=== PATIENT | female | born 1990 | race Hispanic/Latino ===

== ENCOUNTER 2018-04-25 20:38 | Emergency (ER) | payer BC, MEDICAID ==
[2018-04-25 21:01] VITALS: BP 149/79
[2018-04-25] MEDS ORDERED: BOOSTRIX IM ONE (23:46)
[2018-04-25] MEDS ORDERED: NORCO 7.5/325 PO ONE (23:46)
[2018-04-25] MEDS ORDERED: RABAVERT RABIES VACCINE(PCEC) IM ONE (23:46)
[2018-04-25] MEDS ORDERED: XYLOCAINE 1% MPF 5 mL INFILTRATI ONE (23:47)
--- NOTE | 2018-04-25 23:53 | Emergency Department Report ---
ED Animal Bite HPI - General Chief Complaint: Animal Bite Stated Complaint: DOG BITE RT ARM Time Seen by Provider: 04/25/18 23:28 Source: patient Mode of arrival: Ambulatory Limitations: No Limitations - History of Present Illness Initial Comments: This is a 27-year-old female brought by mother nontoxic, well nourished in appearance, no acute signs of distress presents to the ED with c/o of dog bite to right forearm that occurred this evening. Patient stated the dog is unknown to her. Patient denies any head trauma or any other trauma. PAtient denies any information on vaccines. Patient states that she is not up-to-date with tetanus. Patient denies any fever, chills, nausea, vomiting, headache, stiff neck. Patient states allergies to Bactrim with no positive Past medical history. Patient denies notifying animal control. MD Complaint: animal bite -: This evening Right: Arm Animal: dog Animal Control Notified: No Description: unknown animal Mechanism: bite Severity scale (0 -10): 8 Context: unprovoked Associated Symptoms: other (1 cm superficial laceration). denies: erythema, discharge from wound, bleeding, fever, chills, rash, loss of consciousness, cough, headache, diaphoresis, shortness of breath - Related Data Home Medications Medication Instructions Recorded Confirmed Last Taken Pnv with Ca,No.72/Iron/FA 1 tab PO DAILY 12/08/13 12/09/13 12/08/13 09:00 [ Plus Tablet] 1 Calcium Carbonate [Tums] 2 tab PO PRN PRN 12/09/13 12/09/13 12/09/13 10:00 2 Previous Rx's Medication Instructions Recorded Last Taken Type Ferrous Sulfate [Feosol 325 MG tab] 325 mg PO BID #120 tablet 12/11/13 Unknown Rx HYDROcodone/APAP 10-325 [Squires 1 each PO Q6HR PRN #30 tablet 12/11/13 Unknown Rx 10/325] Ibuprofen [Motrin 600 MG tab] 600 mg PO Q6H PRN #30 tablet 12/11/13 Unknown Rx Acetaminophen/Codeine [Tylenol 1 tab PO Q6H PRN #12 tab 04/25/18 Unknown Rx /Codeine # 3 tab] Amoxicillin/K Clav Tab [Augmentin 1 tab PO Q12HR #20 tab 04/25/18 Unknown Rx 875 mg] Allergies Allergy/AdvReac Type Severity Reaction Status Date / Time trimethoprim [From Bactrim] Allergy Intermediate Swelling Verified 12/09/13 12: 16 sulfamethoxazole Allergy Swelling Verified 12/09/13 12:16 [From Bactrim] ED Review of Systems ROS: Stated complaint: DOG BITE RT ARM Other details as noted in HPI Constitutional: denies: chills, fever Eyes: denies: eye pain, eye discharge, vision change ENT: denies: ear pain, throat pain Respiratory: denies: cough, shortness of breath, wheezing Cardiovascular: denies: chest pain, palpitations Endocrine: no symptoms reported Gastrointestinal: denies: abdominal pain, nausea, diarrhea Genitourinary: denies: urgency, dysuria, discharge Musculoskeletal: denies: back pain, joint swelling, arthralgia Skin: denies: rash, lesions Neurological: denies: headache, weakness, paresthesias Psychiatric: denies: anxiety, depression Hematological/Lymphatic: denies: easy bleeding, easy bruising ED Past Medical Hx - Past Medical History Hx Hypertension: No Hx Congestive Heart Failure: No Hx Diabetes: No Hx Deep Vein Thrombosis: No Hx Renal Disease: No Hx Sickle Cell Disease: No Hx Seizures: No Hx Asthma: No Hx COPD: No Hx HIV: No Additional medical history: ache - Surgical History Past Surgical History?: No - Social History Smoking Status: Current Every Day Smoker Substance Use Type: None - Medications Home Medications: Home Medications Medication Instructions Recorded Confirmed Last Taken Type Pnv with Ca,No.72/Iron/FA 1 tab PO DAILY 12/08/13 12/09/13 12/08/13 09:00 History [ Plus Tablet] 1 Calcium Carbonate [Tums] 2 tab PO PRN PRN 12/09/13 12/09/13 12/09/13 10:00 History 2 Ferrous Sulfate [Feosol 325 MG tab] 325 mg PO BID #120 tablet 12/11/13 Unknown Rx HYDROcodone/APAP 10-325 [Squires 1 each PO Q6HR PRN #30 tablet 12/11/13 Unknown Rx 10/325] Ibuprofen [Motrin 600 MG tab] 600 mg PO Q6H PRN #30 tablet 12/11/13 Unknown Rx Acetaminophen/Codeine [Tylenol 1 tab PO Q6H PRN #12 tab 04/25/18 Unknown Rx /Codeine # 3 tab] Amoxicillin/K Clav Tab [Augmentin 1 tab PO Q12HR #20 tab 04/25/18 Unknown Rx 875 mg] ED Physical Exam - General Limitations: No Limitations General appearance: alert, in no apparent distress - Head Head exam: Present: atraumatic, normocephalic - Eye Eye exam: Present: normal appearance - ENT ENT exam: Present: mucous membranes moist - Neck Neck exam: Present: normal inspection - Respiratory Respiratory exam: Present: normal lung sounds bilaterally. Absent: respiratory distress - Cardiovascular Cardiovascular Exam: Present: regular rate, normal rhythm. Absent: systolic murmur, diastolic murmur, rubs, gallop - GI/Abdominal GI/Abdominal exam: Present: soft, normal bowel sounds - Extremities Exam Extremities exam: Present: normal inspection, full ROM, tenderness, normal capillary refill. Absent: joint swelling - Expanded Upper Extremity Exam Right General: Present: normal inspection Shoulder Exam: Present: normal inspection, full ROM. Absent: tenderness Upper Arm exam: Present: normal inspection, full ROM. Absent: tenderness Elbow exam: Present: normal inspection, full ROM. Absent: tenderness Forearm Wrist exam: Present: normal inspection, full ROM, tenderness, abrasion, laceration (1 cm superficial laceration). Absent: swelling, ecchymosis, deformity, dislocation, erythema, tenderness over anatomical snuff box, pain with axial thumb loading Hand Wrist exam: Present: normal inspection, full ROM. Absent: tenderness Neuro motor exam: Present: wrist extension intact, thumb opposition intact, thumb IP flexion intact, thumb adduction intact, fingers 2-5 abduction intact Neurosensory exam: Present: 2-point discrimination, radial nerve intact, ulnar nerve intact, median nerve intact Vascular: Present: vascular compromise, normal capillary refill - Back Exam Back exam: Present: normal inspection, full ROM - Neurological Exam Neurological exam: Present: alert, oriented X3 - Psychiatric Psychiatric exam: Present: normal affect, normal mood - Skin Skin exam: Present: warm, dry, intact, normal color. Absent: rash ED Course Vital Signs 04/25/18 04/25/18 21:00 21:15 Temperature 98.4 F 98.4 F Pulse Rate 69 59 L Respiratory 18 18 Rate Blood Pressure 149/79 149/79 O2 Sat by Pulse 100 100 Oximetry - Reevaluation(s) Reevaluation #1: 04/25/18 23:59 Patient is speaking in full sentences with no signs of distress noted. - Laceration /Wound Repair Right Arm Wound Location: upper extremity Wound Length (cm): 1 Wound's Depth, Shape: superficial Wound Explored: clean Irrigated w/ Saline (ccs): 40 Betadine Prep?: Yes Anesthesia: 1% Lidocaine Volume Anesthetic (ccs): 4 Wound Repaired With: sutures Suture Size/Type: 4:0, nylon Number of Sutures: 1 Layer Closure?: No Sterile Dressing Applied?: Yes Progress: Under sterile field, I used Betadine to clean the area. I then used 40 mL of normal saline to flush the area. I then used 1% lidocaine plain and injected 4 mL to the wound. I then used a 4-0 Ethilon to suture to approximate the laceration very loosely with 1 stitch placed. I then applied a sterile 4 x 4 with tape. Minimal bleeding noted but is under control. Patient tolerated procedure well with no signs of distress. Critical care attestation.: If time is entered above; I have spent that time in minutes in the direct care of this critically ill patient, excluding procedure time. ED Disposition Clinical Impression: Laceration Dog bite Qualifiers: Encounter type: initial encounter Qualified Code(s): W54.0XXA - Bitten by dog, initial encounter Disposition: DC- TO HOME OR SELFCARE Is pt being admited?: No Does the pt Need Aspirin: No Condition: Stable Instructions: Rabies Vaccine (Injection), Animal Bite (ED), Suture Care (ED), Laceration (ED) Additional Instructions: Follow-up with a primary care doctor in 3-5 days or if symptoms worsen and continue return to emergency room as soon as possible. Return in 10 days for suture removal Finish rabies vaccines series on days 04/29/2018, 05/03/2018, and 05/10/2018. Do not operate any machinery while taking Tylenol with codeine as this may cause drowsiness. Prescriptions: Acetaminophen/Codeine [Tylenol /Codeine # 3 tab] 1 tab PO Q6H PRN #12 tab PRN Reason: Pain , Severe (7-10) Amoxicillin/K Clav Tab [Augmentin 875 mg] 1 tab PO Q12HR #20 tab Referrals: PRIMARY CAREMD [Primary Care Provider] - 3-5 Days MICHEL COOPER MD [Staff Physician] - 3-5 Days [facility] [Outside] - 3-5 Days [facility] [Outside] - 3-5 Days Forms: Work/School Release Form(ED) ED Medical Decision Making - Medical Decision Making This is a 27-year-old male that presents with dog bite. Patient is stable was examined by me. I approximated the laceration with loose stitch. Patient was instructed to return in 10 days for suture removal. Patient received immunoglobulin and rabies vaccine. Patient was instructed to receive the full rabies immunizations on days number 3, 7, and 14. Patient is discharged with Augmentin and Tylenol with codeine and was instructed not to operate any machinery when taking Tylenol with Codeine as this may cause drowsiness. The bite wound has been cleaned with soap and water and a sterile dressing has been applied. Patient was educated on proper wound care. Animal control has been notified as per RN. Patient was instructed to Follow-up with a primary care doctor in 3-5 days or if symptoms worsen and continue return to emergency room as soon as possible. At time of discharge, the patient does not seem toxic or ill in appearance. No acute signs of distress noted. Patient agrees to discharge treatment plan of care. No further questions noted by the patient.
== END 2018-04-26 00:31 | disposition home or self-care (01) ==
LOC: ED 20:38
DX: S51.811A Laceration without foreign body of right forearm, initial encounter (principal); F17.200 Nicotine dependence, unspecified, uncomplicated; Z88.1 Allergy status to other antibiotic agents; Z88.2 Allergy status to sulfonamides; W54.0XXA Bitten by dog, initial encounter; Y93.89 Activity, other specified; Y92.89 Other specified places as the place of occurrence of the external cause; Y99.8 Other external cause status
CPT/HCPCS: 90375; 90471; 90472; 90675; 90715; 96372; 99282

== ENCOUNTER 2018-11-05 11:22 | Outpatient (CLI) | payer MEDICAID ==
[2018-11-05] MEDS ORDERED: LACTATED RINGERS 500 ML IV ONE (11:49)
[2018-11-05 13:09] LABS: Bacteria,Urine 1+ /HPF (Negative); Bilirubin,Urine NEG (Negative); Blood,Urine SM (Negative); Color,Urine Yellow (Yellow); Protein,Urine <15 mg/dL mg/dL (Negative); Urobilinogen,Urine < 2.0 mg/dL (<2.0)
[2018-11-05] MEDS ORDERED: XYLOCAINE 1% MPF 5 mL INFILTRATI ONE (13:28)
[2018-11-05] MEDS ORDERED: ROCEPHIN IM ONE (13:28)
--- NOTE | 2018-11-05 14:57 | Ultrasound Report ---
ULTRASOUND BIOPHYSICAL PROFILE: History: Decreased movement Technique: Transabdominal ultrasound with Doppler interrogation. 2 - breathing movements 2 - movements 2 - posture and tone 2 - Qualitative amniotic fluid volume 8 - TOTAL SCORE OF POSSIBLE 8 Heart Rate (bpm) 134
--- NOTE | 2018-11-05 14:58 | Ultrasound Report ---
ULTRASOUND OB LIMITED History: labor Technique: Transabdominal ultrasound with Doppler interrogation. Gestation: Single Position: Transverse, head to maternal left Amniotic Fluid: Normal BRITTANY = 19.7 cm Heart Rate: 129 BPM
== END 2018-11-05 15:12 | disposition home or self-care (01) ==
LOC: TRG 11:22
PROVIDERS: ATTEND Obstetrics & Gynecology
DX: O47.03 False labor before 37 completed weeks of gestation, third trimester (principal); Z3A.30 30 weeks gestation of pregnancy
CPT/HCPCS: 76815; 76819; 81001; J0696

== ENCOUNTER 2018-11-12 16:48 | Outpatient (CLI) | payer MEDICAID ==
[2018-11-12] MEDS ORDERED: LACTATED RINGERS 500 ML IV ONE (17:45)
[2018-11-12] MEDS ORDERED: CELESTONE SOLUSPAN IM SCH (17:45)
== END 2018-11-12 18:23 | disposition home or self-care (01) ==
LOC: TRG 16:48 → LD 17:28 → TRG 18:23
PROVIDERS: ATTEND Obstetrics & Gynecology
DX: O47.03 False labor before 37 completed weeks of gestation, third trimester (principal); O99.333 Smoking (tobacco) complicating pregnancy, third trimester; F17.200 Nicotine dependence, unspecified, uncomplicated; Z3A.31 31 weeks gestation of pregnancy
CPT/HCPCS: 96372; J0702

== ENCOUNTER 2018-11-13 16:11 | Outpatient (CLI) | payer MEDICAID ==
[2018-11-13] MEDS ORDERED: CELESTONE SOLUSPAN IM ONE (16:40)
[2018-11-13 16:43] VITALS: BP 116/64
== END 2018-11-13 17:33 | disposition home or self-care (01) ==
LOC: TRG 16:11
PROVIDERS: ATTEND Obstetrics & Gynecology
DX: O47.03 False labor before 37 completed weeks of gestation, third trimester (principal); O99.333 Smoking (tobacco) complicating pregnancy, third trimester; F17.200 Nicotine dependence, unspecified, uncomplicated; Z3A.31 31 weeks gestation of pregnancy
CPT/HCPCS: 96372; J0702

== ENCOUNTER 2019-01-09 09:29 | Inpatient (IN) | payer MEDICAID ==
[~2019-01-09 09:29] MED LIST: ANCEF/STERILE WATER 2 GM/20 ML 2 GM/20 ML SYRINGE IV NR; BICITRA PO NR; PEPCID IV NR; PITOCin/NS 20 UNIT/1000ML DRIP 20 UNITS/1,000 ML BAG IV SCH; REGLAN IV NR
--- NOTE | 2019-01-09 10:10 | History and Physical Report ---
History of Present Illness Date of examination: 01/09/19 Date of admission: 01/09/19 09:29 Chief complaint: scheduled section History of present illness: Pt is a 28 year old female NAHUM 01/12/19 at 39w4d who presents for scheduled section secondary to prior x 1. She reports irregular contractions and denies vaginal bleeding or leakage of fluid. The patient has had care with [facility] since 8 weeks complicated by previous 1 gentle herpes without lesion or prodrome, GERD, bilateral pyelectasis followed by MFM, contractions with positive fibronectin on 11/05/2018. She is GBS negative The patient also has two vulvar cyst that she would like to be removed while she is under anesthesia for her section because they cause her daily discomfort. 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, chlamydia (remote from this ), herpes Family/Genetic History: hypertension, cancer Social history: no significant social history - Obstetrical History Expected Date of Delivery: 01/12/19 Actual Gestation: 39 Week(s) 4 Day(s) : 3 Para: 2 Hx # Term Pregnancies: 2 Number of Pregnancies: 0 Spontaneous Abortions: 0 Induced : 0 Number of Living Children: 2 Medications and Allergies Allergies Allergy/AdvReac Type Severity Reaction Status Date / Time trimethoprim [From Bactrim] Allergy Intermediate Swelling Verified 12/09/13 12:16 sulfamethoxazole Allergy Swelling Verified 12/09/13 12:16 [From Bactrim] Home Medications Medication Instructions Recorded Confirmed Last Taken Type Pnv with Ca,No.72/Iron/FA 1 tab PO DAILY 12/08/13 12/09/13 12/08/13 09:00 History [ Plus Tablet] 1 Calcium Carbonate [Tums] 2 tab PO PRN PRN 12/09/13 12/09/13 12/09/13 10:00 History 2 Ferrous Sulfate [Feosol 325 MG tab] 325 mg PO BID #120 tablet 12/11/13 Unknown Rx HYDROcodone/APAP 10-325 [[place] 1 each PO Q6HR PRN #30 tablet 12/11/13 Unknown Rx 10/325] Ibuprofen [Motrin 600 MG tab] 600 mg PO Q6H PRN #30 tablet 12/11/13 Unknown Rx Acetaminophen/Codeine [Tylenol 1 tab PO Q6H PRN #12 tab 04/25/18 Unknown Rx /Codeine # 3 tab] Amoxicillin/K Clav Tab [Augmentin 1 tab PO Q12HR #20 tab 04/25/18 Unknown Rx 875 mg] Active Meds: Active Medications Citric Acid/Sodium Citrate (Bicitra) 30 ml PO ONCE NR Stop: 01/09/19 16:00 Famotidine (Pepcid) 20 mg IV ONCE NR Stop: 01/09/19 16:00 Cefazolin Sodium (Ancef/Sterile Water 2 Gm/20 Ml) 2 gm in 20 mls @ 80 mls/hr IV PREOP NR; Protocol Stop: 01/09/19 16:00 Oxytocin/Sodium Chloride (Pitocin/Ns 20 Unit/1000ml Drip) 20 units in 1,000 mls @ 0 mls/hr IV TITR KIMBERLY Lactated Ringer's (Lactated Ringers) 1,000 mls @ 2,250 mls/hr IV PREOP KIMBERLY Stop: 01/10/19 09:27 Metoclopramide HCl (Reglan) 10 mg IV ONCE NR Stop: 01/09/19 16:00 Review of Systems All systems: negative - Vital Signs Vital signs: Vital Signs Pulse BP 63 136/80 01/09/19 10:04 01/09/19 10:04 Temp Pulse Resp BP Pulse Ox 63 136/80 01/09/19 10:04 01/09/19 10:04 - Physical Exam Breasts: Positive: deferred Cardiovascular: Regular rate Lungs: Positive: Clear to auscultation Abdomen: Positive: soft (gravid) Genitourinary (Female): Positive: perineal/vulvar lesions (per HPI) Uterus: Positive: enlarged (gravid ) Extremities: Positive: normal - Obstetrical FHR: auscultation normal Uterine Contraction Pattern: Irregular Uterine Tone Measurement Phase: Resting Results All other labs normal. Assessment and Plan A: IUP at 39w4d Previous x 1 Symptomatic Vulvar cyst Genital Herpes GBS Negative P: Proceed with exam under anesthesia, vulvar cyst excision, repeat section and other indicated procedures
[2019-01-09] MEDS: LACTATED RINGERS 1,000 ML IV SCH ×2 (10:45→11:30)
[2019-01-09 11:14] LABS: Basophils % (Auto) 0.5 % (0.0-1.8); Eosinophils # (Auto) 0.1 K/mm3 (0.0-0.4); Eosinophils % (Auto) 1.3 % (0.0-4.3); Hematocrit 34.9 % (30.3-42.9); Hemoglobin 12.1 gm/dl (10.1-14.3); Lymphocytes # (Auto) 2.5 K/mm3 (1.2-5.4); Lymphocytes % (Auto) 26.4 % (13.4-35.0); Mean Corpuscular HGB Conc 35 % (30-34); Mean Corpuscular Volume 94 fl (79-97); Monocytes # (Auto) 0.4 K/mm3 (0.0-0.8); Monocytes % (Auto) 4.2 % (0.0-7.3); Platelet Count 231 K/mm3 (140-440); Red Cell Distribution Width 12.9 % (13.2-15.2)
[2019-01-09] MEDS ORDERED: NACL 0.9% IR ONE (11:53)
[2019-01-09] MEDS ORDERED: METHERGINE IM ONE ×2 (12:29→14:20)
[2019-01-09] MEDS ORDERED: ZOFRAN ONE (13:58)
--- NOTE | 2019-01-09 14:03 | Procedure Note ---
OB Delivery Note - Delivery Date of Delivery: 01/09/19 Surgeon: RONALDO SANTAMARIA Estimated blood loss: 500cc - Section Preop diagnosis: repeat , other (Vulvar Cysts) Postop diagnosis: same section procedure: section, repeat low transverse, other (Excisiion of Vulvar Cyst ) Disposition: PACU Complications: none Narrative: Please see operative note. - A at 1 minute: 8 at 5 minutes: 9 Infant Gender: Male (2673g (5lb 14 oz) @ 1306 pm)
--- NOTE | 2019-01-09 14:05 | Operative Report ---
Operative Report Operative Report: Date of procedure: January 09, 2019 Preoperative diagnosis: 1) IUP at 39w4d 2) Previous x 1 3) Vulvar C ysts 4) Obesity Postoperative diagnosis: Same Procedure: 1) Excision of vulvar cysts 2) Repeat low transverse section Surgeon: Katia Galvez M.D. Anesthesia: Regional Findings: 1) Viable male , Apgars 8 and 9, weight 2673g, (5 lb 14 oz) in cephalic presentation 2) Normal-appearing uterus ovaries and tubes 3) 1 cm perineal cyst filled with thin white fluid 4) 0.5 cm left vulvar cyst filled with thick white material Estimated blood loss: 500 mL IV fluids: 1000 mL Urine output: 200 mL, clear at the end of the procedure Drains: Wise to gravity Specimens: Cyst contents to pathology Complications: None. Counts correct x 3 Disposition: Stable to PACU Indication for procedure: Pt is a 28 year old at 39w4d with a history of one prior section and two vulvar cysts presents for repeat section and cyst removal under anesthesia. Operation in detail: After the risks, benefits, alternatives and complications were explained to the patient she gave informed consent for the procedure. She was subsequently taken to the operating room where regional anesthesia was noted to be adequate. She was subsequently placed in the dorsal lithotomy position. heart tones were noted to be in the 160s prior to incision. A timeout was performed. A catheter was placed to drain the bladder of urine. Each cyst was identified, the overlying skin was prepped with betadine and incised with a scalpel, the cyst contents were expelled and sent to pathology separately. The remaining defects were rapproximated with a figure of eight of 3-0 Vicryl. Hemostasis was noted. NST was performed during this portion of the procedure. The patient was then placed in the dorsal supine position with leftward tilt and prepped and draped in a normal sterile fashion. FHTs were again noted. A time out was performed. A Pfannenstiel skin incision was made with the knife and carried down to the layer of the fascia with the Bovie. The fascia was incised in the midline and the fascial incision was extended bilaterally with the Bovie. Attention was then turned to the superior aspect of the incision which was grasped with two Kochers, tented up, and dissected off the rectus muscles. Attention was then turned to the inferior aspect of the incision which was grasped with two Kochers, tented up and dissected off the rectus muscles. The rectus muscles were then in the midline. The peritoneum was then entered bluntly. The peritoneal incision was extended with good visualization of the bladder. The peritoneal incision was then stretched. An Mario self-retaining retractor was placed for visualization. The bladder blade was placed. The vesicouterine peritoneum was grasped with smooth pickups and incised with Metzenbaum scissors. Metzenbaum scissors were used to extend the incision bilaterally. The bladder flap was then created digitally and the bladder blade was replaced. A transverse incision was made in the lower uterine segment with a knife and extended bilaterally with the bandage scissors. The head was delivered without difficulty followed by shoulders and body. was bulb suctioned at delivery. The cord was clamped and cut and the was handed to NICU staff in attendance. Cord blood was collected. The placenta was then delivered manually. The uterus was then exteriorized and cleared of all clots and debris. The hysterotomy was then reapproximated with 0 Vicryl in a running locked fashion. A second layer of the same suture was used in imbricating fashion. The hysterotomy was inspected and hemostasis was noted. The Mario self-retaining retractor was removed. The gutters were irrigated and cleared of all clots and debris. The hysterotomy was again inspected and noted to be hemostatic. Surgicel was placed over the hysterotomy. The peritoneum was reapproximated with 2-0 Vicryl in a running fashion incorporating the rectus muscles. Surgicel was placed over the rectus muscles. The fascia was reapproximated with 0 Vicryl in a running fashion. The subcutaneous tissue was reapproximated with 3-0 Vicryl in a running fashion. The skin was reapproximated with 4-0 Vicryl in a subcuticular fashion. The incision was then covered with steri strips and a pressure dressing. The procedure was then ended. The patient tolerated the procedure well and was taken to the PACU in stable condition. All instrument, lap, and needle counts were correct 3.
--- NOTE | 2019-01-09 14:31 | Post Anesthesia Evaluation ---
- Post Anesthesia Evaluation Patient Participated: Yes Airway Patent: Yes Stable Respiratory Function: Yes Nausea/Vomiting: No Temp > 96.8F: Yes Pain Manageable: Yes Adequeate Hydration: Yes Anesthesia Complications: No Block Receding Appropriately: Yes
--- NOTE | 2019-01-09 14:32 | Anesthesia Consultation ---
Anesthesia Consult and Med Hx Date of service: 01/09/19 - Airway Anesthetic Teeth Evaluation: Good ROM Head & Neck: Adequate Mental/Hyoid Distance: Adequate Mallampati Class: Class I Intubation Access Assessment: Good - Pulmonary Exam CTA: Yes - Cardiac Exam Cardiac Exam: RRR - Pre-Operative Health Status ASA Pre-Surgery Classification: ASA3 Proposed Anesthetic Plan: Spinal - Pulmonary Hx Smoking: Yes Hx Asthma: No COPD: No Hx Pneumonia: No - Cardiovascular System Hx Hypertension: No - Central Nervous System Hx Seizures: No Hx Psychiatric Problems: No - Endocrine Hx Renal Disease: No Hx End Stage Renal Disease: No Hx Hypothyroidism: No Hx Hyperthyroidism: No - Hematic Hx Anemia: No Hx Sickle Cell Disease: No - Other Systems Hx Alcohol Use: No
[2019-01-09] MEDS ORDERED: NUBAIN IV PRN (15:00)
[2019-01-09] MEDS ORDERED: SODIUM CHLORIDE FLUSH SYRINGE 10 ML IV PRN (15:00)
[2019-01-09] MEDS ORDERED: DILAUDID IV PRN ×2 (15:00)
[2019-01-09] MEDS ORDERED: PHENERGAN PO PRN (15:00)
[2019-01-09] MEDS ORDERED: TYLENOL PO SCH (15:00)
[2019-01-09] MEDS ORDERED: PHENERGAN PR PRN (15:00)
[2019-01-09] MEDS ORDERED: ZOFRAN IV PRN ×2 (15:00→18:36)
[2019-01-09] MEDS ORDERED: NARCAN 0.4 MG/1 ML IV PRN ×2 (15:00→18:36)
[2019-01-09] MEDS ORDERED: TORADOL IV SCH (18:00)
[2019-01-09] MEDS ORDERED: PITOCin/NS 20 UNIT/1000ML DRIP 20 UNITS/1,000 ML BAG IV SCH (18:36)
[2019-01-09] MEDS ORDERED: SODIUM CHLORIDE FLUSH SYRINGE 10 ML IV NR (18:36)
[2019-01-09] MEDS ORDERED: MYLICON PO PRN (18:36)
[2019-01-09] MEDS ORDERED: LANSINOH TP PRN (18:36)
[2019-01-09] MEDS ORDERED: MORPHINE IV PRN ×2 (18:36)
[2019-01-09] MEDS ORDERED: TUCKS PAD TP PRN (18:36)
[2019-01-09] MEDS ORDERED: TORADOL IV PRN (18:36)
[2019-01-09] MEDS ORDERED: MILK OF MAGNESIA PO PRN (18:36)
[2019-01-09] MEDS ORDERED: D5LR 1,000 ML IV SCH (20:00)
[2019-01-09] MEDS: ANCEF/NS 1 GM/50 ML 1 GM/50 ML BAG IV SCH (20:54)
[2019-01-10 02:56] LABS: Hematocrit 31.9 % (30.3-42.9); Hemoglobin 10.9 gm/dl (10.1-14.3)
[2019-01-10] MEDS: ANCEF/NS 1 GM/50 ML 1 GM/50 ML BAG IV SCH (04:59)
[2019-01-10] MEDS ORDERED: BOOSTRIX IM ONE (06:00)
[2019-01-10] MEDS: PERCOCET 5/325 PO PRN ×3 (07:33→21:44)
[2019-01-10] MEDS: TYLENOL PO SCH ×2 (09:26→14:50)
[2019-01-10] MEDS ORDERED: M-M-R II VACCINE SUB-Q ONE (10:00)
--- NOTE | 2019-01-10 10:05 | Progress Note ---
Assessment and Plan A: 1. POD1 s/p rLTCS and vulvar cyst excision. Vital signs and labs wnl. 2. Smoking 3. GERD P: 1. Continue current care 2. Discussed risk of SIDS and smoking on health. Pt requests Nicotine patch, rxed 3. Famotidine Pt requests discharge tomorrow. Subjective - Subjective Date of service: 01/10/19 Principal diagnosis: POD1 Interval history: Pt is POD1 s/p repeat LTCS and vulvar cyst excision. Patient reports: appetite normal, voiding normally, pain well controlled (Pt reports pain was not well-controlled overnight, and she did not receive pain medication despite requesting it), flatus, ambulating normally, other (Heartburn. Pt has been gotten up to smoke outside.) [place]: doing well, nursing well Objective - Vital Signs Latest vital signs: Vital Signs Temp Pulse Resp BP Pulse Ox 01/10/19 08:08 98.1 F 70 16 137/75 98 01/10/19 07:33 18 01/10/19 04:57 98.2 F 72 20 132/83 97 01/10/19 02:34 18 01/10/19 00:09 18 01/09/19 23:39 97.9 F 65 20 137/79 96 01/09/19 20:53 18 01/09/19 19:39 98.2 F 66 20 130/78 99 01/09/19 15:30 97.6 F 15 110/66 98 01/09/19 15:25 97.6 F 15 110/66 98 01/09/19 15:00 67 16 120/60 97 01/09/19 14:45 67 16 102/88 97 01/09/19 14:35 66 16 98/55 97 01/09/19 14:30 98.2 F 58 L 12 102/58 98 01/09/19 11:34 97.8 F 01/09/19 10:33 63 18 01/09/19 10:04 63 136/80 Intake and Output 01/09/19 01/10/19 01/10/19 23:59 07:59 15:59 Intake Total 570 480 120 Output Total 1400 2400 Balance -830 -1920 120 Intake: IV 50 ANCEF/NS 1 GM/50 ML 1 gm 50 In 50 ml @ 100 mls/hr IV Q8H [facility] Rx#:[id number] Oral 520 480 120 Output: Urine 1400 2400 Indwelling Catheter 1400 1000 Void 1400 Other: Total, Intake Amount 120 240 120 Total, Output Amount 1000 800 # Voids Void 3 - Exam Breasts: Present: deferred Cardiovascular: Present: Regular rate, Normal S1, Normal S2, No murmurs Lungs: Present: Clear to auscultation, Normal air movement Abdomen: Present: normal appearance, soft, normal bowel sounds Uterus: Present: normal, firm, fundal height below umbilicus Extremities: Present: normal Incision: Present: normal, dry - Labs Labs: Abnormal lab results 01/09/19 Range/Units 10:00 MCH 33 H (28-32) pg MCHC 35 H (30-34) % RDW 12.9 L (13.2-15.2) %
--- NOTE | 2019-01-10 10:30 | Discharge Summary ---
Providers - Providers Date of Admission: 01/09/19 09:29 Date of discharge: 01/11/19 Attending physician: RONALDO SANTAMARIA Primary care physician: JAYDE MARINA MD Hospitalization Reason for admission: section Delivery: Procedure: repeat low transverse, other (vulvar cyst excision) Incision: normal, dry, intact complications: none Discharge diagnosis: IUP at term delivered Condition at discharge: Good Disposition: DC-01 TO HOME OR SELFCARE Plan - Discharge Medications Prescriptions: oxyCODONE /ACETAMINOPHEN [Percocet 5/325] 1 tab PO Q6HR PRN #30 tablet PRN Reason: Pain - Provider Discharge Summary Activity: routine, no sex for 6 weeks, no heavy lifting 4 weeks, no strenuous exercise Diet: routine Instructions: routine Additional instructions: [] Smoking cessation referral if applicable(refer to patient education folder for contact #) [] Refer to [facility] Booklet Call your doctor immediately for: * Fever > 100.5 * Heavy vaginal bleeding ( >1 pad per hour) * Severe persistent headache * Shortness of breath * Reddened, hot, painful area to leg or breast * Drainage or odor from incision. * Keep incision clean and dry at all times and follow doctor's instructions regarding bathing/showering Call to schedule incision check in 2 weeks - Follow up plan Follow up: RONALDO SANTAMARIA MD [Staff Physician] - 14 Days
[2019-01-10] MEDS: PEPCID PO SCH ×2 (10:55→21:43)
[2019-01-10] MEDS: HABITROL TD SCH (10:55)
[2019-01-10] MEDS: IBUPROFEN PO PRN ×2 (14:49→21:43)
[2019-01-11] MEDS: PERCOCET 5/325 PO PRN ×2 (04:39→10:14)
[2019-01-11] MEDS: IBUPROFEN PO PRN ×2 (04:41→10:16)
[2019-01-11 09:18] VITALS: BP 159/86
[2019-01-11] MEDS: PEPCID PO SCH (10:06)
[2019-01-11] MEDS: HABITROL TD SCH (10:07)
== END 2019-01-11 11:00 | disposition home or self-care (01) | DRG 765 ==
LOC: APU 09:29 → OB 15:49
PROVIDERS: ADMIT Obstetrics & Gynecology; ATTEND Obstetrics & Gynecology
PROC: 10D00Z1 Extraction of Products of Conception, Low, Open Approach (ICD-10-PCS; principal; 2019-01-09)
PROC: 0UBM0ZZ Excision of Vulva, Open Approach (ICD-10-PCS; 2019-01-09)
PROC: 3E0234Z Introduction of Serum, Toxoid and Vaccine into Muscle, Percutaneous Approach (ICD-10-PCS; 2019-01-10)
DX: O34.211 Maternal care for low transverse scar from previous cesarean delivery (principal); O98.32 Other infections with a predominantly sexual mode of transmission complicating childbirth; O99.334 Smoking (tobacco) complicating childbirth; F17.200 Nicotine dependence, unspecified, uncomplicated; O99.62 Diseases of the digestive system complicating childbirth; K21.9 Gastro-esophageal reflux disease without esophagitis; O34.73 Maternal care for abnormality of vulva and perineum, third trimester; N90.7 Vulvar cyst; O99.214 Obesity complicating childbirth; E66.9 Obesity, unspecified; Z23 Encounter for immunization; Z37.0 Single live birth; Z3A.39 39 weeks gestation of pregnancy; Z82.49 Family history of ischemic heart disease and other diseases of the circulatory system; Z80.9 Family history of malignant neoplasm, unspecified; Z88.2 Allergy status to sulfonamides; Z79.899 Other long term (current) drug therapy
CPT/HCPCS: 36415; 85014; 85018; 85025; 86850; 86900; 86901; 88304; 88305; 96360; 96361; 96374; G0378; A6250; J0690; J1170; J1885; J2210; J2270; J2405; J2590; J2765; J7120; J7121